=== PATIENT | female | born 1985 | race African-American/Black ===

== ENCOUNTER 2016-08-30 16:18 | Emergency (ER) | payer BC, OTHER ==
[2016-08-30] MEDS ORDERED: Acetaminophen/HYDROcodone 325-10 MG Tab PO ONE (17:02)
[2016-08-30] MEDS ORDERED: Ibuprofen Susp 100 MG/5 ML 5 ML UD Cup PO ONE (17:03)
[2016-08-30] MEDS ORDERED: Ibuprofen 200 MG Tab ONE (17:17)
[2016-08-30 20:00] VITALS: BP 168/98
--- NOTE | 2016-09-04 08:00 | ER ---
Date of Service: 08/30/2016 SUBJECTIVE: The patient presents to the emergency room with complaints of right lateral ankle pain. She states that she was walking. Approximately 20 minutes ago, she stepped on a crack in the sidewalk and twisted her right ankle. She states that she does not recall if she inwardly or outwardly rotated her foot. She states that she is not experiencing any numbness or tingling distal to the area of injury and denies any injury other than what is isolated to her right ankle. The patient states that she has no previous injury to this area in the past. PAST MEDICAL HISTORY: Hypertension. MEDICATIONS: Labetalol 100 mg p.o. b.i.d. ALLERGIES: To Rocephin. REVIEW OF SYSTEMS: Please see history of present illness. She states that the discomfort is located primarily in the lateral aspect of her right ankle but radiates up into lower leg and anterior knee. PHYSICAL EXAMINATION: General: This is a 31-year-old female patient, who is in mild to moderate amount of distress. Vital Signs: Blood pressure is 168/98, pulse rate is 86, heart rate is 101, respiratory rate is 18, O2 saturations 96%. Skin: Warm, pink, and dry. Musculoskeletal: She does have significant amount of edema to the lateral aspect of her right ankle. No obvious step-offs or deformity noted. No crepitus noted. Neurovascular, circulation, sensation, and motor function all within normal limits in the distal portion of the extremity. RADIOGRAPHIC DATA: Radiographs of the patient's ankle, tib-fib, and knee were obtained and were all negative for acute pathology. ASSESSMENT: Right ankle sprain. PLAN: The patient will be discharged. Joe wrap was placed and the patient was placed in an air cast. She was started on crutches. Ibuprofen 600 mg every 6 hours as needed for pain, I did give her a 5 pack and [place] 5/325 with instructions to take 1 every 6 hours as needed for pain that is refractory to the ibuprofen. All questions were answered. MWK: 09/03/2016 15:40:20 MODL: 09/03/2016 16:09:07 /[id number]
== END 2016-08-30 17:25 | disposition home or self-care (01) ==
LOC: VM.ED 16:18
DX: S93.401A Sprain of unspecified ligament of right ankle, initial encounter (principal); I10 Essential (primary) hypertension; Z88.8 Allergy status to other drugs, medicaments and biological substances; X50.1XXA Overexertion from prolonged static or awkward postures, initial encounter
CPT/HCPCS: 73562; 73590; 73610; 99284; A9270